=== PATIENT | female | born 1975 | race Caucasian/White ===

== ENCOUNTER → 2018-05-14 11:20 | Outpatient (CLI) | payer OTHER, SELFPAY ==
[2018-05-14 12:14] LABS: Hemoglobin 12.7 g/dL (12.0-16.0)
[2018-05-14 13:15] LABS: Creatinine Urine Random 70.4 mg/dL
[2018-05-14 13:16] LABS: Albumin 4.7 g/dL (3.5-5.0); BUN Creatinine Ratio 19.2 (6-22); Blood Urea Nitrogen 48 mg/dL (7-17); Calcium 10.2 mg/dL (8.4-10.2); Carbon Dioxide 25 mmol/L (22-32); Chloride 101 mmol/L (98-107); Estimated Glomerular Filt Rate 21.2 mL/min (>60); Glucose 85 mg/dL (70-100); HEMOLYSIS < 15 (0-50); Sodium 137 mmol/L (137-145)
[2018-05-14 13:29] LABS: Microalbumi Creatinin Ratio Ur 555.3 ug/mg CR (<30); Microalbumin Urine Random 39.1 mg/dL (0-1.6)
[2018-05-14 14:28] LABS: HEMOLYSIS < 15 (0-50); Iron 119 ug/dL (37-170)
[2018-05-14 14:40] LABS: Percent Iron Saturation 39 % (15-50); Total Iron Binding Capacity 302 ug/dL (265-497); Transferrin 250 mg/dL (206-381)
== END ==
PROVIDERS: Visit Provider Internal Medicine Nephrology
DX: Q61.3 Polycystic kidney, unspecified (principal); N18.9 Chronic kidney disease, unspecified; I10 Essential (primary) hypertension
CPT/HCPCS: 36415; 80069; 82043; 82570; 83540; 83550; 85018

== ENCOUNTER → 2018-08-21 15:50 | Outpatient (CLI) | payer OTHER, SELFPAY ==
--- NOTE | 2018-08-21 15:52 | DI.MG.S_ITS ---
BILATERAL DIGITAL SCREENING MAMMOGRAM 3D/2D WITH CAD: 08/21/2018 CLINICAL: Routine screening. Baseline exam. No prior exams were available for comparison. The tissue of both breasts is heterogeneously dense. This may lower the sensitivity of mammography. Current study was also evaluated with a Computer Aided Detection (CAD) system. No significant masses, calcifications, or other findings are seen in either breast. IMPRESSION: NEGATIVE There is no mammographic evidence of malignancy. A 1 year screening mammogram is recommended. This exam was interpreted at Station ID: [id number]. NOTE: For mammograms, a report in lay terms will be sent to the patient. Approximately 15% of breast malignancies will not be visualized mammographically. In the management of a palpable breast mass, a negative mammogram must not discourage biopsy of a clinically suspicious lesion. Electronically Signed By: Ange mcmanus/kirstie:08/21/2018 16:28:36 letter sent: Normal Exam ACR BI-RADS Category 1: Negative 3341F
== END ==
PROVIDERS: Visit Provider Obstetrics & Gynecology
DX: Z12.31 Encounter for screening mammogram for malignant neoplasm of breast (principal)
CPT/HCPCS: 77063; 77067

== ENCOUNTER → 2018-10-04 15:16 | Outpatient (CLI) | payer SELFPAY ==
[2018-10-04 15:37] LABS: Specimen Label KIT TEST
== END ==
PROVIDERS: Visit Provider Internal Medicine Nephrology
DX: Z13.9 Encounter for screening, unspecified (principal)
CPT/HCPCS: 36415

== ENCOUNTER → 2018-12-24 14:47 | Outpatient (CLI) | payer OTHER, SELFPAY ==
[2018-12-24 15:01] LABS: Specimen Label BLOODWORKS KIT
[2018-12-24 17:45] LABS: Thyroid Stimulating Hormone 1.75 uIU/mL (0.47-4.68)
== END ==
PROVIDERS: Visit Provider Internal Medicine Nephrology
DX: E03.9 Hypothyroidism, unspecified (principal)
CPT/HCPCS: 36415; 84443

== ENCOUNTER → 2019-03-27 12:19 | Outpatient (CLI) | payer OTHER, SELFPAY ==
[2019-03-27 13:40] LABS: BUN Creatinine Ratio 17.9 (6-22); Blood Urea Nitrogen 50 mg/dL (7-17); Calcium 9.6 mg/dL (8.4-10.2); Carbon Dioxide 26 mmol/L (22-32); Chloride 105 mmol/L (98-107); Estimated Glomerular Filt Rate 18.5 mL/min (>60); Glucose 89 mg/dL (70-100); HEMOLYSIS < 15 (0-50); Potassium 4.7 mmol/L (3.4-5.1); Sodium 140 mmol/L (137-145)
[2019-03-27 14:32] LABS: Thyroid Stimulating Hormone 2.62 uIU/mL (0.47-4.68)
== END ==
PROVIDERS: PCP Internal Medicine Nephrology; Referring Provider Internal Medicine Nephrology; Visit Provider Internal Medicine Nephrology
DX: N18.4 Chronic kidney disease, stage 4 (severe) (principal)
CPT/HCPCS: 36415; 80048; 84443

== ENCOUNTER → 2019-05-02 13:37 | Outpatient (CLI) | payer OTHER, SELFPAY | PROVIDERS: PCP Internal Medicine Nephrology; Referring Provider Internal Medicine Nephrology; Visit Provider Internal Medicine Nephrology | DX: Q61.3 Polycystic kidney, unspecified (principal) | CPT/HCPCS: 36415 ==

== ENCOUNTER → 2019-06-10 15:05 | Outpatient (CLI) | payer OTHER, SELFPAY | PROVIDERS: PCP Internal Medicine Nephrology; Referring Provider Internal Medicine Nephrology; Visit Provider Internal Medicine Nephrology | DX: Q61.3 Polycystic kidney, unspecified (principal) | CPT/HCPCS: 36415 ==

== ENCOUNTER → 2019-07-17 10:10 | Outpatient (CLI) | payer OTHER, SELFPAY | PROVIDERS: PCP Internal Medicine Nephrology; Referring Provider Internal Medicine Nephrology; Visit Provider Internal Medicine Nephrology | DX: Q61.3 Polycystic kidney, unspecified (principal) | CPT/HCPCS: 36415 ==

== ENCOUNTER → 2019-08-13 14:55 | Outpatient (CLI) | payer OTHER, SELFPAY | PROVIDERS: PCP Internal Medicine Nephrology; Referring Provider Internal Medicine Nephrology; Visit Provider Internal Medicine Nephrology | DX: Q61.3 Polycystic kidney, unspecified (principal) | CPT/HCPCS: 36415 ==

== ENCOUNTER → 2019-08-27 17:31 | Outpatient (CLI) | payer OTHER, SELFPAY ==
--- NOTE | 2019-08-27 | DI.MG.S_ITS ---
BILATERAL DIGITAL SCREENING MAMMOGRAM 3D/2D WITH CAD: 08/27/2019 CLINICAL: Routine screening. Comparison is made to exam dated: 08/21/2018 [facility]. The tissue of both breasts is heterogeneously dense. This may lower the sensitivity of mammography. Current study was also evaluated with a Computer Aided Detection (CAD) system. No significant masses, calcifications, or other findings are seen in either breast. There has been no significant interval change. IMPRESSION: NEGATIVE There is no mammographic evidence of malignancy. A 1 year screening mammogram is recommended. This exam was interpreted at Station ID: [id number]. NOTE: For mammograms, a report in lay terms will be sent to the patient. Approximately 15% of breast malignancies will not be visualized mammographically. In the management of a palpable breast mass, a negative mammogram must not discourage biopsy of a clinically suspicious lesion. Electronically Signed By: Pb jung/kirstie:08/28/2019 08:13:05 letter sent: Normal Exam ACR BI-RADS Category 1: Negative 3341F
== END ==
PROVIDERS: PCP Internal Medicine Nephrology; Referring Provider Internal Medicine Nephrology; Visit Provider Internal Medicine Nephrology
DX: Z12.31 Encounter for screening mammogram for malignant neoplasm of breast (principal)
CPT/HCPCS: 77063; 77067

== ENCOUNTER → 2019-09-26 12:17 | Outpatient (CLI) | payer OTHER, SELFPAY | PROVIDERS: PCP Internal Medicine Nephrology; Referring Provider Internal Medicine Nephrology; Visit Provider Internal Medicine Nephrology | DX: B97.7 Papillomavirus as the cause of diseases classified elsewhere (principal); Z12.4 Encounter for screening for malignant neoplasm of cervix; Z11.51 Encounter for screening for human papillomavirus (HPV) | CPT/HCPCS: 36415 ==

== ENCOUNTER → 2019-11-05 10:23 | Outpatient (CLI) | payer OTHER, SELFPAY ==
[2019-11-05 11:12] LABS: Specimen Label KIT
== END ==
PROVIDERS: PCP Internal Medicine Nephrology; Referring Provider Internal Medicine Nephrology; Visit Provider Internal Medicine Nephrology
DX: B97.7 Papillomavirus as the cause of diseases classified elsewhere (principal)
CPT/HCPCS: 36415

== ENCOUNTER → 2020-02-26 14:47 | Outpatient (CLI) | payer OTHER, SELFPAY | PROVIDERS: PCP Internal Medicine Nephrology; Referring Provider Internal Medicine Nephrology; Visit Provider Internal Medicine Nephrology | DX: Z13.9 Encounter for screening, unspecified (principal) | CPT/HCPCS: 36415 ==

== ENCOUNTER → 2020-05-04 11:02 | Outpatient (CLI) | payer OTHER, SELFPAY ==
[2020-05-04] MEDS: COVID-19 VACC #1, MRNA(MOD) 100 MCG/0.5 ML VIAL IM (11:10)
== END ==
PROVIDERS: PCP Internal Medicine Nephrology; Visit Provider Internal Medicine
DX: Z23 Encounter for immunization (principal)
CPT/HCPCS: 0011A; 91301

== ENCOUNTER → 2020-06-02 10:40 | Outpatient (CLI) | payer OTHER, SELFPAY ==
[2020-06-02] MEDS: COVID-19 VACC #2, MRNA(MOD) 100 MCG/0.5 ML VIAL IM (10:47)
== END ==
PROVIDERS: PCP Internal Medicine Nephrology; Visit Provider Internal Medicine
DX: Z23 Encounter for immunization (principal)
CPT/HCPCS: 0012A; 91301

== ENCOUNTER → 2021-01-10 11:49 | Outpatient (CLI) | payer OTHER, SELFPAY ==
[2021-01-10 13:05] LABS: Hematocrit 33.6 % (36-46); Hemoglobin 11.6 g/dL (12.0-16.0); Mean Corpuscular HGB Conc 34.6 % (30-36); Mean Corpuscular Hemoglobin 31.9 PG (26-34); Mean Corpuscular Volume 92.3 fL (80-100); Platelet Count 273 X10^3/uL (150-400); Red Blood Cell Count 3.64 X10^6/uL (4.0-5.2); Red Cell Distribution Width 12.8 % (11.6-14.8); White Blood Cell Count 5.6 X10^3/uL (4.5-11.0)
[2021-01-10 13:28] LABS: Alanine Aminotransferase 12 IU/L (<35); Albumin Globulin Ratio 1.5 (1.0-2.8); Alkaline Phosphatase 38 U/L (38-126); Aspartate Aminotransferase 17 IU/L (14-36); BUN Creatinine Ratio 11.3 (6-22); Bilirubin Total 0.4 mg/dL (0.2-1.3); Blood Urea Nitrogen 40 mg/dL (7-17); Calcium 9.7 mg/dL (8.4-10.2); Carbon Dioxide 25 mmol/L (22-32); Chloride 105 mmol/L (98-107); Estimated Glomerular Filt Rate 14.1 mL/min (>60); Globulin 2.6 g/dL (1.7-4.1); Glucose 89 mg/dL (70-100); HEMOLYSIS < 15 (0-50); Sodium 139 mmol/L (137-145); Total Protein 6.6 g/dL (6.3-8.2)
[2021-01-10 13:32] LABS: Potassium 5.8 mmol/L (3.4-5.1)
[2021-01-10 15:55] LABS: Neutrophils Absolute Manual 3192 /uL (3000-5900); Total Cells Counted 100
[2021-01-10 15:57] LABS: RBC Morphology Normal Morphology
[2021-01-11 16:55] LABS: Calcium 9.6 mg/dL (8.7-10.2); Parathyroid Hormone, Intact 174 pg/mL (15-65)
== END ==
PROVIDERS: PCP Internal Medicine Nephrology; Referring Provider Internal Medicine Nephrology; Visit Provider Internal Medicine Nephrology
DX: E78.5 Hyperlipidemia, unspecified (principal)
CPT/HCPCS: 36415; 80053; 82310; 83970; 85025

== ENCOUNTER → 2021-05-25 14:13 | Outpatient (CLI) | payer OTHER, SELFPAY ==
--- NOTE | 2021-05-25 14:15 | DI.MG.S_ITS ---
BILATERAL DIGITAL SCREENING MAMMOGRAM 3D/2D WITH CAD: 05/25/2021 CLINICAL: Routine screening. Comparison is made to exams dated: 08/27/2019 mammogram and 08/21/2018 mammogram - [facility]. The tissue of both breasts is heterogeneously dense. This may lower the sensitivity of mammography. Current study was also evaluated with a Computer Aided Detection (CAD) system. No significant masses, calcifications, or other findings are seen in either breast. There has been no significant interval change. IMPRESSION: NEGATIVE There is no mammographic evidence of malignancy. A 1 year screening mammogram is recommended. This exam was interpreted at Station ID: [id number]. NOTE: For mammograms, a report in lay terms will be sent to the patient. Approximately 15% of breast malignancies will not be visualized mammographically. In the management of a palpable breast mass, a negative mammogram must not discourage biopsy of a clinically suspicious lesion. Electronically Signed By: Alfredo hicks/kirstie:05/25/2021 15:10:09 letter sent: Normal Exam ACR BI-RADS Category 1: Negative 3341F
== END ==
PROVIDERS: PCP Internal Medicine Nephrology; Referring Provider Internal Medicine Nephrology; Visit Provider Internal Medicine Nephrology
DX: Z12.31 Encounter for screening mammogram for malignant neoplasm of breast (principal)
CPT/HCPCS: 77063; 77067

== ENCOUNTER 2022-10-12 14:21 | Emergency (ER) | payer OTHER, SELFPAY ==
[2022-10-12 14:38] VITALS: TEMP 36; BMI 32.9
[2022-10-12] MEDS: ACETAMINOPHEN 325 MG TABLET 650 MG PO (14:44)
[2022-10-12] MEDS: ONDANSETRON 4 MG ODT SL (14:44)
== END 2022-10-12 18:03 | disposition left against medical advice (07) ==
PROVIDERS: Emergency Provider Physician Assistant; PCP Family Medicine
DX: R51.9 Headache, unspecified (principal)
CPT/HCPCS: 99283

== ENCOUNTER 2022-10-13 02:37 | Emergency (ER) | payer OTHER, SELFPAY ==
[2022-10-13 02:51] VITALS: BP 141/77; PULSE 76; RESP 18; TEMP 37; O2SAT 98; BMI 35.6
[2022-10-13 03:30] LABS: COVID19 -Nasal RAPID Negative (Negative)
--- NOTE | 2022-10-13 03:31 | ED.HA ---
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 Patient states yesterday she developed sudden-onset headache and nausea and vomiting. She states she is not sure which came 1st they were pretty much simultaneous. No syncope, she states headache got better over time she would actually come to the ER to be seen but there was a long wait so she ultimately left but return when her headache started to increase again. She denies fevers or chills. No neck pain, no back pain, no chest pain or shortness of breath. She states nausea and vomiting have resolved. She denies any diarrhea constipation, no dysuria urgency or frequency. No incontinence. She denies numbness, tingling or weakness. No vision changes. Patient denies any other neurologic changes. She denies any prior headache she states she is not had migraines in the past. She is approximately 1 year status post renal transplant. She states her labs have been quite steady her renal function has been excellent. No tobacco, alcohol with through. She denies any drug allergies. She did try some ibuprofen at home before she was seen what she states was not very helpful. Related Data Home Medications Medication Instructions Recorded Confirmed cholecalciferol (vitamin D3) 125 5,000 unit PO DAILY 08/13/18 10/12/22 mcg (5,000 unit) capsule desvenlafaxine succinate 100 mg 100 mg PO DAILY 08/13/18 10/12/22 tablet,extended release 24 hr (Pristiq) clonazepam 1 mg tablet 1 mg PO DAILY 06/16/21 10/12/22 coenzyme [id number] E 100 mg-100 cap PO 06/16/21 10/12/22 unit capsule lamotrigine 150 mg tablet 100 mg PO DAILY 06/16/21 10/12/22 pravastatin 20 mg tablet 20 mg PO DAILY 06/16/21 10/12/22 telmisartan 40 mg tablet 40 mg PO DAILY 06/16/21 10/12/22 thyroid (pork) 90 mg tablet 60 mg PO DAILY 06/16/21 10/12/22 ([place] Thyroid) cyclosporine modified 50 mg capsule mg PO 10/12/22 10/12/22 metformin 500 mg tablet 500 mg PO DAILY 10/12/22 10/12/22 mycophenolate mofetil 500 mg tablet 1,000 mg PO BID 10/12/22 10/12/22 tolnaftate 1 % topical cream applic topical 10/12/22 10/12/22 Allergies Allergy/AdvReac Type Severity Reaction Status Date / Time Sulfa (Sulfonamide Allergy Severe RASH AND Verified 10/12/22 14:38 Antibiotics) SWELLING Review of Systems Review of Systems ROS Unobtainable: All systems reviewed & are unremarkable except as noted in HPI and below Patient History Medical History Anxiety (~1991) Chicken pox (~1987) Hypothyroidism Kidney disease (~1991) Kidney failure Kidney stones Polycystic kidney disease (~2011) Surgical History Anesthesia Family History Grandmother Rafael's disease Stroke Mother Rafael's disease Father Myelofibrosis Brother Anxiety Grandfather Cancer History of heart disease Grandmother Hypertension Stroke Grandfather Stroke Social History Smoking Status: Never smoker Smoking Status: Never smoker alcohol intake frequency: holidays/special occasions only Substance Use Type: does not use Exam Narrative Exam Narrative: GEN: well nourished, well appearing female, alert and oriented x 3, patient appears to be in moderate distress. HEENT: Atraumatic, pupils are equal round reactive to light, extraocular movements are intact, no nystagmus, positive for photophobia, nares are clear, there is no conjunctival pallor. Throat is clear without any exudates, erythema, tonsillar enlargement or uvular deviation, no facial droop. HEART: Regular rate and rhythm without murmur, clicks, rubs. pulses are equal in upper and lower extremities LUNGS:Lungs clear to auscultation, no wheezes, rales, crackles, chest moves symmetrically ABD:bowel sounds normal, soft, non-tender, no guarding, rebound, rigidity, no masses noted, no hepatosplenomegaly :No CVA tenderness MSCL: Non-tender, no muscle atrophy, muscles strength 5/5 upper and lower extremities, full range of motion, normal gait NEURO:CN 2-12 intact, sensation normal, finger nose finger test normal, heel arriola test normal. SKIN: No rash, erythema or other skin changes. Initial Vital Signs Initial Vital Signs: Vital Signs Temperature 98.6 F 10/13/22 02:51 Pulse Rate 76 10/13/22 02:51 Respiratory Rate 18 10/13/22 02:51 Blood Pressure 141/77 H 10/13/22 02:51 Pulse Oximetry 98 10/13/22 02:51 Oxygen Delivery Method Room Air 10/13/22 02:51 Course Orders Ordered: ED Orders 10/13/22 03:10 COVID19 -Nasal RAPID Stat 10/13/22 03:55 CBC Auto Diff [Complete Blood Count AUTO DIFF] Stat CMP [Comprehensive Metabolic Panel] Stat Lamotrigine Lamictal Stat Lipase Stat PTT Partial Thromboplastin Taqueria Stat Prothrombin Time INR Stat 10/13/22 04:59 CT angio head and neck Stat CT head/brain wo con Stat Discontinued Medications Sodium Chloride (Normal Saline 0.9%) 1,000 mls @ 1,000 mls/hr IV BOLUS ONE Stop: 10/13/22 05:58 Last Admin: 10/13/22 05:15 Dose: 1,000 mls/hr Documented By: BALTA Acetaminophen (Ofirmev) 1,000 mg in 100 mls @ 400 mls/hr IV NOW ONE Stop: 10/13/22 05:14 Last Infusion: 10/13/22 05:53 Dose: 0 mls/hr Documented By: Admin: 10/13/22 05:16 Dose: 400 mls/hr Documented By: BALTA Metoclopramide HCl (Metoclopramide 10 Mg/2 Ml Inj) 10 mg IV NOW ONE Stop: 10/13/22 05:00 Last Admin: 10/13/22 05:15 Dose: 10 mg Documented By: BALTA Vital Signs Vital signs: Vital Signs - 8 hr 10/13/22 02:51 10/13/22 05:46 10/13/22 05:47 Temperature 98.6 F Pulse Rate 76 66 Respiratory Rate 18 Blood Pressure 141/77 H Pulse Oximetry 98 99 98 Oxygen Delivery Method Room Air Room Air Room Air 10/13/22 05:47 Temperature Pulse Rate Respiratory Rate Blood Pressure 120/61 Pulse Oximetry Oxygen Delivery Method MDM - Headache Lab Data 10/13/22 03:55 10/13/22 03:55 Labs: Lab Results 10/13/22 10/13/22 10/13/22 Range/Units 03:10 03:55 03:55 WBC 6.4 (4.5-11.0) X10^3/uL RBC 4.14 (4.0-5.2) X10^6/uL Hgb 12.6 (12.0-16.0) g/dL Hct 36.8 (36-46) % MCV 88.9 (80-100) fL MCH 30.5 (26-34) PG MCHC 34.4 (30-36) % RDW 14.4 (11.6-14.8) % Plt Count 306 (150-400) X10^3/uL Neut % (Auto) 72.0 (50-75) % Lymph % (Auto) 16.2 L (25-40) % [place] % (Auto) 10.1 (3-14) % Eos % (Auto) 1.2 L (2-4) % Baso % (Auto) 0.5 (0-2) % Neut # (Auto) 4600 (6579-0843) /uL Lymph # (Auto) 1000 L (0929-5076) /uL [place] # (Auto) 600 (0-900) /uL Eos # (Auto) 100 (0-450) /uL Baso # (Auto) 0 (0-100) /uL PT 11.6 (10.1-12.7) SECONDS INR 1.0 (0.9-1.3) APTT 30 (26-36) SECONDS Sodium (137-145) mmol/L Potassium (3.4-5.1) mmol/L Chloride (98-107) mmol/L Carbon Dioxide (22-32) mmol/L BUN (7-17) mg/dL Creatinine (0.52-1.04) mg/dL Estimated GFR (>60) mL/min BUN/Creatinine Ratio (6-22) Glucose (70-100) mg/dL Calcium (8.4-10.2) mg/dL Total Bilirubin (0.2-1.3) mg/dL AST (14-36) IU/L ALT (<35) IU/L Alkaline Phosphatase (38-126) U/L Total Protein (6.3-8.2) g/dL Albumin (3.5-5.0) g/dL Globulin (1.7-4.1) g/dL Albumin/Globulin Ratio (1.0-2.8) Lipase (23-300) U/L SARS-CoV-2 (PCR) Negative (Negative) 10/13/22 Range/Units 03:55 WBC (4.5-11.0) X10^3/uL RBC (4.0-5.2) X10^6/uL Hgb (12.0-16.0) g/dL Hct (36-46) % MCV (80-100) fL MCH (26-34) PG MCHC (30-36) % RDW (11.6-14.8) % Plt Count (150-400) X10^3/uL Neut % (Auto) (50-75) % Lymph % (Auto) (25-40) % [place] % (Auto) (3-14) % Eos % (Auto) (2-4) % Baso % (Auto) (0-2) % Neut # (Auto) (0738-9969) /uL Lymph # (Auto) (7603-3833) /uL [place] # (Auto) (0-900) /uL Eos # (Auto) (0-450) /uL Baso # (Auto) (0-100) /uL PT (10.1-12.7) SECONDS INR (0.9-1.3) APTT (26-36) SECONDS Sodium 139 (137-145) mmol/L Potassium 4.2 (3.4-5.1) mmol/L Chloride 102 (98-107) mmol/L Carbon Dioxide 28 (22-32) mmol/L BUN 14 (7-17) mg/dL Creatinine 0.89 (0.52-1.04) mg/dL Estimated GFR > 60 (>60) mL/min BUN/Creatinine Ratio 15.7 (6-22) Glucose 92 (70-100) mg/dL Calcium 9.4 (8.4-10.2) mg/dL Total Bilirubin 0.6 (0.2-1.3) mg/dL AST 21 (14-36) IU/L ALT 19 (<35) IU/L Alkaline Phosphatase 39 (38-126) U/L Total Protein 7.3 (6.3-8.2) g/dL Albumin 4.3 (3.5-5.0) g/dL Globulin 3.0 (1.7-4.1) g/dL Albumin/Globulin Ratio 1.4 (1.0-2.8) Lipase 347 H (23-300) U/L SARS-CoV-2 (PCR) (Negative) Imaging Data CT scan - head: Radiologist's Impression: No evidence of acute intracranial pathology. Ventricles are normal configuration. Basilar cisterns intact. No intracranial hemorrhage, mass effect or midline shift. No extra-axial fluid collections. Parenchyma is unremarkable in attenuation. Patricia-white matter junction is preserved. No evidence of acute large vessel territorial ischemia. Brainstem and cerebellum are unremarkable. Calvarium intact imaged portion of paranasal sinuses are clear. No mastoid effusions. Orbital contents are unremarkable. CTA - brain/neck: Radiologist's Impression: Wide patency of the intracranial arterial circulation, no intracranial aneurysm or AVM, unremarkable CT enhancement of the brain parenchyma. MDM Narrative Medical decision making narrative: This is a 46-year-old female with history significant for prior renal transplant for genetic disease who is on multiple antirejection medications, medication for anxiety and mood disorder as well as statin. Patient had sudden onset headache and vomiting that started yesterday. Patient has no highest in the past but has had persistent photophobia no infectious changes, fevers, no neurologic changes but history is concerning and head CT along with CT angio head and neck were obtained, labs. Imaging is overall reassuring. Labs show lipase of 347 but otherwise appropriate CBC, coags and CMP. Patient was given fluids, Reglan and IV Tylenol, on reassessment proximally an hour later. Patient is having some improvement. She no longer has a martin pulled were her eyes. We did review all of her findings today. She is not having any other acute neurologic changes discussed and when there is extremely high suspicion for subarachnoid bleed will sometimes perform lumbar puncture. Patient defers this and my suspicion is on the lower end at this point. Did discuss reasons to return emergently, signs and symptoms to watch for. We will give her prescription for antinausea medication, she can take oral Tylenol and pain medication. Discharge Plan Departure Patient Disposition: Home Clinical Impression: Headache Instructions: DI for Headache Activity Restrictions/Additional Instructions: Please follow-up with your physicians. [facility] transplant team know that you are having severe headaches which are new. You may take Tylenol up to a 1000 mg every 6 hours as needed for pain. You can take Zofran 1 tablet every 6 hours as needed for nausea. You may take 1-2 tablets of tramadol every 6 hours as needed for pain. This medication can make you sleepy do not drive, perform hazardous activities or make any major decisions while taking it. This medication will make you constipated please take a stool softener once to twice daily until stools are soft and regular. Please return for fevers, rapidly worsening symptoms, persistent vomiting, sudden vision changes, passing out, new numbness, tingling or weakness, loss of bowel or bladder control or other new or concerning changes. Prescriptions: No Action cyclosporine modified 50 mg capsule PO mycophenolate mofetil 500 mg tablet 1,000 mg PO BID tolnaftate 1 % cream topical metformin 500 mg tablet 500 mg PO DAILY desvenlafaxine succinate [Pristiq] 100 mg tablet extended release 24 hr 100 mg PO DAILY cholecalciferol (vitamin D3) 5,000 unit capsule 5,000 unit PO DAILY lamotrigine 150 mg tablet 100 mg PO DAILY telmisartan 40 mg tablet 40 mg PO DAILY pravastatin 20 mg tablet 20 mg PO DAILY clonazepam 1 mg tablet 1 mg PO DAILY coenzyme [id number] 100-100 mg-unit capsule PO thyroid (pork) [[place] Thyroid] 90 mg tablet 60 mg PO DAILY Rx Instructions: take one tablet by mouth daily. Please call to establish care before more fills Referrals: Carlos Ochoa DO [Primary Care Provider] - Stand Alone Forms: Patient Portal/API
--- NOTE | 2022-10-13 04:59 | DI.CT.S_ITS ---
PROCEDURE: CT ANGIO HEAD AND NECK INDICATIONS: sudden onset magaña, n/v, no prior migraine TECHNIQUE: After the administration of intravenous contrast, 1 mm thick sections acquired from the aortic arch through the [place]. 3-dimensional [id number] (MIP) and/or volume rendering reformats were acquired of the central intracranial vasculature and neck separately. For radiation dose reduction, the following was used: automated exposure control, adjustment of mA and/or kV according to patient size. COMPARISON: None. FINDINGS: Image quality: Diagnostic. HEAD CT ANGIOGRAPHY: Anterior circulation: Intracranial internal carotid arteries are normal in size and flow. The flow within the paired anterior cerebral arteries is normal and symmetric. The flow within the middle cerebral arteries is normal and symmetric. The anterior communicating artery is seen. No aneurysms are seen. Posterior circulation: Visualized portions of the vertebral arteries demonstrate normal caliber, and join to form a normal appearing basilar artery. Flow within the posterior cerebral arteries is normal and symmetric. No aneurysms are seen. NECK CT ANGIOGRAPHY: Carotid system: The great vessels demonstrate a conventional anatomy as they arise from the aortic arch. The origins of the common carotid arteries appear patent. The common carotid arteries demonstrate normal caliber and courses. The bifurcation regions are both widely patent. The internal carotid arteries demonstrate normal calibers and courses. Posterior circulation: The origins of the vertebral arteries both appear widely patent. The more superior extracranial portions of both vertebral arteries also demonstrate normal courses and calibers. They join to form a normal appearing basilar artery. Soft tissues: Visualized neck soft tissues demonstrate no suspicious abnormalities. Bones: No suspicious bony lesions. Visualized cervical spine appears normally aligned. IMPRESSION: The arteries of the head and neck are widely patent without hemodynamically significant stenosis or large vessel occlusion. No intracranial aneurysm or AVM. Findings are concordant with preliminary interpretation provided by [facility]. Any quantitative measurements of stenosis were performed using NASCET criteria. Dictated by: Tony Salazar M.D. on 10/13/2022 at 8:16 Approved by: Tony Salazar M.D. on 10/13/2022 at 8:21
--- NOTE | 2022-10-13 04:59 | DI.CT.S_ITS ---
PROCEDURE: CT HEAD/BRAIN WO CON INDICATIONS: sudden onset magaña, n/v, no prior migraine TECHNIQUE: Noncontrast 4.5 mm thick angled axial sections acquired from the foramen magnum to the vertex, with coronal and sagittal reformats. For radiation dose reduction, the following was used: automated exposure control, adjustment of mA and/or kV according to patient size. COMPARISON: None. FINDINGS: Image quality: Excellent. CSF spaces: Basal cisterns are patent. No extra-axial fluid collections. Ventricles are normal in size and shape. Brain: No midline shift. No intracranial masses or hemorrhage. Patricia-white matter interface is normal. Skull and face: Calvarium and visualized facial bones are intact, without suspicious lesions. Sinuses: Visualized sinuses and mastoids are clear. IMPRESSION: 1. No acute intracranial abnormalities. No significant discrepancy with the second shift supervisor radiology preliminary report. Dictated by: Murphy Randle M.D. on 10/13/2022 at 7:55 Approved by: Murphy Randle M.D. on 10/13/2022 at 7:55
[2022-10-13 05:15] LABS: Add Manual Diff / Slide Review NO; Basophils Absolute Auto 0 /uL (0-100); Basophils Percent Auto 0.5 % (0-2); Eosinophils Absolute Auto 100 /uL (0-450); Eosinophils Percent Auto 1.2 % (2-4); Hematocrit 36.8 % (36-46); Hemoglobin 12.6 g/dL (12.0-16.0); Lymphocytes Absolute Auto 1000 /uL (1100-4500); Lymphocytes Percent Auto 16.2 % (25-40); Mean Corpuscular HGB Conc 34.4 % (30-36); Mean Corpuscular Hemoglobin 30.5 PG (26-34); Mean Corpuscular Volume 88.9 fL (80-100); Monocytes Absolute Auto 600 /uL (0-900); Monocytes Percent Auto 10.1 % (3-14); Neutrophils Absolute Auto 4600 /uL (1500-7000); Platelet Count 306 X10^3/uL (150-400); Prothrombin Time 11.6 SECONDS (10.1-12.7); Red Blood Cell Count 4.14 X10^6/uL (4.0-5.2); Red Cell Distribution Width 14.4 % (11.6-14.8); White Blood Cell Count 6.4 X10^3/uL (4.5-11.0)
[2022-10-13] MEDS: METOCLOPRAMIDE 10 MG/2 ML INJ IV (05:15)
[2022-10-13] MEDS: SODIUM CHLORIDE 0.9% 1,000 ML 1000 ML IV (05:15)
[2022-10-13] MEDS: ACETAMINOPHEN IV 1,000 MG/100 ML VIAL 400 MG IV (05:16)
[2022-10-13 05:18] LABS: PTT Partial Thromboplastin Tim 30 SECONDS (26-36)
[2022-10-13 05:19] LABS: Alanine Aminotransferase 19 IU/L (<35); Albumin 4.3 g/dL (3.5-5.0); Albumin Globulin Ratio 1.4 (1.0-2.8); Alkaline Phosphatase 39 U/L (38-126); Aspartate Aminotransferase 21 IU/L (14-36); BUN Creatinine Ratio 15.7 (6-22); Bilirubin Total 0.6 mg/dL (0.2-1.3); Blood Urea Nitrogen 14 mg/dL (7-17); Calcium 9.4 mg/dL (8.4-10.2); Carbon Dioxide 28 mmol/L (22-32); Chloride 102 mmol/L (98-107); Estimated Glomerular Filt Rate > 60 mL/min (>60); Glucose 92 mg/dL (70-100); HEMOLYSIS < 15 (0-50); Lipase 347 U/L (23-300); Potassium 4.2 mmol/L (3.4-5.1); Sodium 139 mmol/L (137-145); Total Protein 7.3 g/dL (6.3-8.2)
[2022-10-13 05:46] VITALS: O2SAT 99
[2022-10-13 05:47] VITALS: BP 120/61; PULSE 66; O2SAT 98
[2022-10-13 06:00] VITALS: BP 117/63; PULSE 67; O2SAT 98
[2022-10-13 06:30] VITALS: PULSE 72; O2SAT 97
[2022-10-13 06:31] VITALS: BP 101/54; PULSE 70; O2SAT 97
[2022-10-13] MEDS: TRAMADOL 50 MG PREPACK 1 BOTTLE MISC (06:34)
[2022-10-13] MEDS: ONDANSETRON 4 MG ODT PREPACK 1 BOTTLE MISC (06:34)
[2022-10-16 15:20] LABS: Lamotrigine Lamictal 1.7 ug/mL (2.0-20.0)
== END 2022-10-13 06:44 | disposition home or self-care (01) ==
PROVIDERS: Emergency Provider Emergency Medicine; PCP Family Medicine
DX: R51.9 Headache, unspecified (principal); R11.2 Nausea with vomiting, unspecified; Z20.822 Contact with and (suspected) exposure to COVID-19
CPT/HCPCS: 36415; 70450; 70496; 70498; 80053; 80175; 83690; 85025; 85610; 85730; 87635; 96365; 96375; 99284; C9803; J0131; J2765; Q9967

== ENCOUNTER → 2023-06-11 15:31 | Outpatient (CLI) | payer MEDICARE, SELFPAY ==
--- NOTE | 2023-06-11 15:32 | DI.RAD.S_ITS ---
PROCEDURE: XR ANKLE LT MIN 3V INDICATIONS: L ankle sprain TECHNIQUE: 3 views of the ankle were acquired. COMPARISON: [facility], , ANKLE 3 VIEWS RIGHT, 11/14/2016, 11:23. FINDINGS: Bones: No fractures or dislocations. Ankle mortise is normally aligned. No suspicious bony lesions. Soft tissues: Moderate tibiotalar joint effusion. Achilles tendon appears normal. IMPRESSION: No displaced fracture, but with a moderate tibiotalar effusion. If there remains a high clinical concern or the patient cannot bear weight, consider cross-sectional imaging to exclude an occult fracture. Dictated by: Marc Gutierrez M.D. on 06/11/2023 at 16:41 Approved by: Marc Gutierrez M.D. on 06/11/2023 at 16:41
== END ==
PROVIDERS: PCP Family Medicine; Referring Provider Family Medicine; Visit Provider Family Medicine
DX: S93.402A Sprain of unspecified ligament of left ankle, initial encounter (principal); M25.472 Effusion, left ankle; X58.XXXA Exposure to other specified factors, initial encounter
CPT/HCPCS: 73610

== ENCOUNTER → 2023-08-31 15:08 | Outpatient (CLI) | payer MEDICARE, SELFPAY ==
--- NOTE | 2023-08-31 15:09 | DI.US.S_ITS ---
PROCEDURE: US PELVIC COMPLETE INDICATIONS: Bleeding x38 days TECHNIQUE: Real-time scanning was performed of the pelvic organs, with image documentation. Additional endovaginal scanning was necessary due to incomplete visualization of the adnexal and endometrial structures by transabdominal scanning. COMPARISON: None. FINDINGS: Uterus: 9.3 x 4.6 x 4.8 cm. Endometrium measures 1.7 cm. Anteverted positioning. There are nabothian cysts. Ovaries: The right ovary measures 30 cc. There is a simple appearing cyst measuring 3.3 x 3.2 cm. The left ovary is nonenlarged, measuring 9 cc. Other: No pathologic free abdominal or pelvic fluid. IMPRESSION: Endometrium is mildly thickened at 1.7 cm. If there is persistent concern, consider gynecologic follow-up and sampling. Right ovarian cyst measuring 3.3 x 3.2 cm. Mild overall ovarian enlargement. This can predispose to torsion. Dictated by: Michael Bianchi M.D. on 08/31/2023 at 18:16 Approved by: Michael Bianchi M.D. on 08/31/2023 at 18:18
== END ==
PROVIDERS: PCP Family Medicine; Referring Provider Obstetrics & Gynecology; Visit Provider Obstetrics & Gynecology
DX: N93.9 Abnormal uterine and vaginal bleeding, unspecified (principal); R93.89 Abnormal findings on diagnostic imaging of other specified body structures; N83.201 Unspecified ovarian cyst, right side
CPT/HCPCS: 76856

== ENCOUNTER 2023-11-12 14:07 | Day surgery (SDC) | payer MEDICARE, SELFPAY ==
[2023-11-08 11:50] VITALS: BMI 36.6
--- NOTE | 2023-11-12 | PATH_ITS ---
[facility] Accession Number: [id number] No. of containers..01 Tissue . 01 Material submitted: . endometrium - ENDOMETRIAL CURETTINGS . 01 Diagnosis: ENDOMETRIUM, CURETTAGE: Late secretory endometrium. Negative for endometrial intraepithelial neoplasm or malignancy. MRV 11/15/2023 1408 Local . 01 Comment: As part of routine production quality analyst, Dr. Valentin has reviewed this case and agrees there is no evidence of neoplasm. . 01 Electronically signed: . César August MD, PhD, Pathologist NPI- [id number] . 01 Gross description: . ENDOMETRIAL CURETTINGS: Received in formalin are minute fragments of mucoid and hemorrhagic material measuring 4.0 x 2.0 x 0.2 cm in aggregate. Submitted in toto in 2 cassettes. /DEON 11/13/2023 0145 Local . 01 Pathologist provided ICD-10: N92.0 . 01 CPT . 703482 Specimen Comment: A courtesy copy of this report has been sent to [phone] Performed at: [address] [facility] [address], [place], [place] [id number] MD Kyle Wilks MD Phone: [phone]
[2023-11-12 14:29] VITALS: BMI 32.7
[2023-11-12 14:34] VITALS: BP 109/68; PULSE 80; RESP 16; TEMP 36.8; O2SAT 99
[2023-11-12] MEDS: LACTATED RINGERS 1,000 ML 42 ML IV (14:47)
--- NOTE | 2023-11-12 14:51 | PM.GYNHP.1 ---
History of Present Illness History of Present Illness Reason for admission: vaginal bleeding (Heavy and prolonged) Narrative: Amanda Dias is a 48 year old female 3 para 2 who presents for a D&C hysteroscopy, possible endometrial polyp removal, and placement of Mirena IUD. This is being done due to a thickened endometrial lining and 60 days of continuous bleeding. [facility] Medical History Moderate left ankle sprain Family history of breast cancer Ashkenazi Yazidism ancestry Anxiety (~1991) Chicken pox (~1987) Kidney stones Kidney failure Kidney disease (~1991) Polycystic kidney disease (~2011) Hypothyroidism Surgical History Renal transplant recipient Anesthesia Family History Grandmother Rafael's disease Stroke Mother Rafael's disease Father Myelofibrosis Brother Anxiety Grandfather Cancer History of heart disease Grandmother Hypertension Stroke Grandfather Stroke Social History household members: spouse Smoking Status: Never smoker alcohol intake: current Meds Home Medications and Allergies Home Medications Medication Instructions Recorded Confirmed Type desvenlafaxine succinate 100 mg 100 mg PO DAILY 08/13/18 11/12/23 History tablet,extended release 24 hr (Pristiq) clonazepam 1 mg tablet 1 mg PO DAILY 06/16/21 11/12/23 History thyroid (pork) 90 mg tablet 60 mg PO DAILY 06/16/21 11/12/23 History ([place] Thyroid) cholecalciferol (vitamin D3) PO 02/26/23 09/10/23 History lamotrigine 150 mg tablet 150 mg PO DAILY 02/26/23 11/12/23 History pravastatin 20 mg tablet 20 mg PO DAILY 02/26/23 11/12/23 History prednisone 5 mg tablet 5 mg PO DAILY 02/26/23 11/12/23 History zinc citrate PO 02/26/23 09/10/23 History cyclosporine modified 50 mg capsule 125 mg PO BID 06/11/23 11/12/23 History mycophenolate mofetil 500 mg tablet 500 mg PO TID 06/11/23 11/12/23 History tirzepatide (weight loss) 2.5 2.5 mg SUBCUT QWEEK 11/12/23 11/12/23 History mg/0.5 mL subcutaneous pen injector Allergies Allergy/AdvReac Type Severity Reaction Status Date / Time No Known Drug Allergies Allergy Verified 11/12/23 14:26 Exam Vital Signs (past 8 hours): - 11/12/23 14:34 Temperature 98.3 F Pulse Rate 80 Respiratory Rate 16 Blood Pressure 109/68 Pulse Oximetry 99 Oxygen Delivery Method Room Air Oxygen Delivery Method Room Air Narrative Exam Narrative: HEENT: No thyromegaly, no anterior cervical or supraclavicular lymphadenopathy. Lungs:Clear to auscultation bilaterally, no wheezes. Cardiovascular: Regular rate and rhythm, no murmurs, rubs, or gallops. Abdomen: Well-healed scars. No hepatosplenomegaly. No masses palpable. External genitalia: Normal Vagina: Normal Cervix: Normal, parous Bimanual exam: [9 Week size anteverted uterus. Mobile.] Extremities: No edema Assessment & Plan Assessment & Plan narrative: Assessment: 48-year-old 3 para 2 heavy and prolonged vaginal bleeding, possible endometrial polyp on ultrasound Normal endometrial biopsy Plan: D&C hysteroscopy with possible polyp removal Mirena IUD insertion The risks, benefits, and alternatives were explained to the patient. The risks including bleeding, infection, and uterine perforation. She understands these risks and agrees to proceed. A full par Q was held and consent form was signed. Time-Based Coding :: [TOTAL MINUTES] spent with patient and on the chart (including review of chart, obtaining history, exam, reviewing outside data, placing orders, documenting exam and treatment plan, and counseling patient) on [DATE].
--- NOTE | 2023-11-12 14:52 | SUR.OPER ---
Lithotomy on padded OR bed, head on pillow, arms secured on padded arm boards at <90 degrees abduction. Legs secured in padded yellow fins stirrups.
--- NOTE | 2023-11-12 14:54 | PM.PREOP ---
Pre-operative Note Interval Note History & Physical reviewed/Exam performed by Physician: Yes Changes to H&P: No H&P completed within 30 days and has changed as indicated here:: 11/12/23
--- NOTE | 2023-11-12 15:27 | PM.GYNOP.1 ---
Operative Date/Time/Diagnoses Date of procedure: 11/12/23 Time of procedure: 15:27 Pre-op diagnosis: Menometrorrhagia Thickened endometrial Post-op diagnosis: same Procedure & Clinicians Procedure: Procedures Operation Date: 11/12/23 15:15 Actual Procedure Side Surgeon p Hysteroscopy, D&C, Insertion of Mirena IUD, endometrial curettings Edel Salinas MD Indications: 48-year-old 3 para 2 with prolonged and heavy vaginal bleeding. Thickened endometrial lining on ultrasound. Negative endometrial biopsy. Surgeon: Edel Salinas Anesthesia Type: General (LMA) Operative Notes Findings: 9 week size anteverted uterus Both fallopian tube ostia observed Thickened endometrial lining throughout Closure Type: not applicable Specimen(s): endometrial curettings Applied: other (Mirena IUD inserted) Estimated blood loss (mL): 5 Blood products transfused: none Procedure in detail: After informed consent was obtained, the patient was taken to the operating room where she was placed in the dorsal supine position. After adequate LMA general anesthesia was achieved, she was placed in the dorsal lithotomy position, and prepped and draped in the usual sterile fashion. A time-out was performed. A bivalve speculum was placed into the vagina and the anterior lip of the cervix was grasped with a single-tooth tenaculum. The cervical os was sequentially dilated until the hysteroscope could pass easily into the endometrial cavity. Initial inspection with the hysteroscope revealed both fallopian tube ostia. There was thickened endometrium throughout. The hysteroscope was removed from the uterus. Sharp curettage was performed yielding a large amount of endometrial curettings. The Mirena IUD was placed at the fundus of the uterus without difficulty. The strings were cut to 2 cm. The single-tooth tenaculum was removed from the anterior lip of the cervix. The bivalve speculum was removed from the vagina. Sponge, lap, and instrument counts were correct x2. The patient tolerated the procedure well, and was taken to PACU in stable condition. Complications: none Post-operative Condition: stable Disposition: PACU Plan for aftercare: Home after recovery
[2023-11-12 15:33] VITALS: BP 133/88; PULSE 89; RESP 13; TEMP 36.6; O2SAT 98
[2023-11-12 15:38] VITALS: BP 131/80; PULSE 88; RESP 14; O2SAT 98
[2023-11-12 15:43] VITALS: BP 132/80; PULSE 91; RESP 15; O2SAT 98
[2023-11-12 15:50] VITALS: BP 117/83; PULSE 91; RESP 11; TEMP 36.6; O2SAT 99
== END 2023-11-12 16:10 | disposition home or self-care (01) ==
PROVIDERS: PCP Family Medicine; Referring Provider Obstetrics & Gynecology; Visit Provider Obstetrics & Gynecology
PROC: 0UDB8ZZ Extraction of Endometrium, Via Natural or Artificial Opening Endoscopic (ICD-10-PCS; CPT 58558; principal; 2023-11-12 15:15)
DX: R93.89 Abnormal findings on diagnostic imaging of other specified body structures (principal); N92.0 Excessive and frequent menstruation with regular cycle; Z30.430 Encounter for insertion of intrauterine contraceptive device
CPT/HCPCS: 58558; 58300; J1100; J2405; J2704; J3010

== ENCOUNTER → 2024-06-27 14:58 | Outpatient (CLI) | payer MEDICARE, SELFPAY ==
[2024-06-27 17:04] LABS: Free T4, Direct Thyroxine 0.76 ng/dL (0.78-2.19)
[2024-06-27 17:18] LABS: Thyroid Stimulating Hormone 0.406 uIU/mL (0.47-4.68)
== END ==
PROVIDERS: PCP Family Medicine; Referring Provider Family Medicine; Visit Provider Family Medicine
DX: E03.9 Hypothyroidism, unspecified (principal); F41.9 Anxiety disorder, unspecified
CPT/HCPCS: 36415; 84439; 84443